=== PATIENT | female | born 1970 | race Caucasian/White ===

== ENCOUNTER 2019-02-14 04:50 | Emergency (ER) | payer OTHER ==
[~2019-02-14] VITALS: Ht 167.6 cm; Wt 95.2 kg
--- OUTSIDE RECORDS SUMMARY | ~2019-02-14 | XMS | Clinical Summary ---
Demographics + + + | Address | [address] | | | [place] [address] | + + + | Home Phone | | + + + | Preferred Language | Unknown | + + + | Marital Status | | + + + | Church Affiliation | Unknown | + + + | Race | Unknown | + + + | Ethnic Group | Unknown | + + + Author + + + | Author | [employer] | + + + | Organization | [facility] | + + + | Address | Unknown | + + + | Phone | Unavailable | + + + Support + + +---------+ + | Name | Relationship | Address | Phone | + + +---------+ + | Azul Larios | ECON | Unknown | | + + +---------+ + | Nallely Post | ECON | Unknown | | + + +---------+ + | Luke Hawthorne | ECON | Unknown | | + + +---------+ + Care Team Providers + +------+ + | Care Kilnman Name | Role | Phone | + +------+ + | Norman Salcedo MD | PP | | + +------+ + Allergies + + + + + + | Active Allergy | Reactions | Severity | Noted | Comments | | | | | Date | | + + + + + + | Hydrocodone-Acetamin | Hives | High | 08/14/20 | | | ophen | | | 16 | | + + + + + + Current Medications + + +-------+---------+------+------+-------+ | Prescription | Sig. | Disp. | Refills | Star | End | Statu | | | | | | t | Date | s | | | | | | Date | | | + + +-------+---------+------+------+-------+ | | Take 1 tablet by | | | | | Activ | | lisinopril-hydrochlo | mouth daily. | | | | | e | | rothiazide | | | | | | | | (PRINZIDE,ZESTORETIC | | | | | | | | ) 20-25 MG per | | | | | | | | tablet | | | | | | | + + +-------+---------+------+------+-------+ | aspirin 81 MG EC | Take 81 mg by mouth | | | | | Activ | | tablet | daily with | | | | | e | | | breakfast. | | | | | | + + +-------+---------+------+------+-------+ | MULTIPLE VITAMIN | Take by mouth | | | | | Activ | | PO | daily. | | | | | e | + + +-------+---------+------+------+-------+ Active Problems Not on file Family History + + +------+ + | Medical History | Relation | Name | Comments | + + +------+ + | Heart disease | Father | | | + + +------+ + | High cholesterol | Father | | | + + +------+ + | Hypertension | Father | | | + + +------+ + | Stroke | Father | | | + + +------+ + | Cancer | Mother | | | + + +------+ + | Heart disease | Sister | | | + + +------+ + + +------+ + + | Relation | Name | Status | Comments | + +------+ + + | Brother | | Alive | | + +------+ + + | Father | | | open heart x 2, valve | | | | (Age | replacement,HTN,Hyperlipidemia,CVA | | | | 72) | | + +------+ + + | Mother | | | liver cancer | | | | (Age | | | | | 56) | | + +------+ + + | Sister | | Alive | | + +------+ + + | Sister | | Alive | | + +------+ + + Social History + +-------+ +--------+------+ | Tobacco Use | Types | Packs/Day | Years | Date | | | | | Used | | + +-------+ +--------+------+ | Never Smoker | | | | | + +-------+ +--------+------+ + +---+---+---+ | Smokeless Tobacco: | | | | | Never Used | | | | + +---+---+---+ + + +---------+ + | Alcohol Use | Drinks/We | oz/Week | Comments | | | ek | | | + + +---------+ + | Yes | 0 | 0.0 | 1-2 weekly | | | Standard | | | | | drinks or | | | | | | | | | | equivalen | | | | | t | | | + + +---------+ + + + + | Sex Assigned at | Date Recorded | | | | + + + | Not on file | | + + + Last Filed Vital Signs + + + + | Vital Sign | Reading | Time Taken | + + + + | Blood Pressure | 126/66 | 08/14/2016 9:52 AM PDT | + + + + | Pulse | 90 | 08/14/2016 9:52 AM PDT | + + + + | Temperature | - | - | + + + + | Respiratory Rate | 16 | 08/14/2016 9:52 AM PDT | + + + + | Oxygen Saturation | 98% | 08/14/2016 9:52 AM PDT | + + + + | Inhaled Oxygen | - | - | | Concentration | | | + + + + | Weight | 95.8 kg (211 lb 3.2 | 08/14/2016 9:52 AM PDT | | | oz) | | + + + + | Height | 168.9 cm (5' 6.5") | 08/14/2016 9:52 AM PDT | + + + + | Body Mass Index | 33.58 | 08/14/2016 9:52 AM PDT | + + + + Plan of Treatment + + + + + | Health Maintenance | Due Date | Last Done | Comments | + + + + + | Vaccine: | | | | | Dtap/Tdap/Td (1 - | 8 | | | | Tdap) | | | | + + + + + | Cervical Cancer | | | | | Screening (Pap) | 9 | | | + + + + + | Breast Cancer | | | | | Screening | 9 | | | | (Mammogram) | | | | + + + + + | Colon Cancer | | | | | Screening | 9 | | | | (Colonoscopy) | | | | + + + + + | Vaccine: Zoster (1 | | | | | of 2) | 9 | | | + + + + + | Vaccine: Influenza | | | | | (Season Ended) | 9 | | | + + + + + Results Not on filefrom Last 3 Months Insurance + +--------+ +------+-------+---------+ | Payer | Benefi | Subscriber | Type | Phone | Address | | | t Plan | ID | | | | | | / | | | | | | | Group | | | | | + +--------+ +------+-------+---------+ | [employer] | [employer] | [id number] | | | | | | WORK | | | | | + +--------+ +------+-------+---------+ + +--------+ +--------+ + + | Guarantor Name | Accoun | Relation to | Date | Phone | Billing Address | | | t Type | Patient | of | | | | | | | | | | + +--------+ +--------+ + + | ANGE OSPINA | Person | Self [birth year] Work: | [address] | | | al/[place] | | 1971 | [phone] | [place] [address] | | | [place] | | | [phone]: | | | | | | | | | | | | | | [phone] | | | | | | | 2020 | | + +--------+ +--------+ + +
--- OUTSIDE RECORDS SUMMARY | ~2019-02-14 | XMS | Clinical Summary ---
Demographics + + + | Address | [address] | | | [place] [address] | + + + | Home Phone | | + + + | Preferred Language | Unknown | + + + | Marital Status | | + + + | Episcopalian Affiliation | Unknown | + + + | Race | Unknown | + + + | Ethnic Group | Unknown | + + + Author + + + | Author | [facility] [employer] | + + + | Organization | [facility] | + + + | [...] Team Providers + +------+ + | Care Excelsior Machine Operator Name | Role | Phone | + [...] +------+-------+---------+ | [employer] | [employer] | [id number] | | | | | | WORK [...] | | al/[address] | | 1971 | [phone] | [place] [address] | | | [place]ina | | | [phone]: | | | | | | | | | | | | | | [phone] | | | | | | | [phone] | | + +--------+ +--------+ + +
[~2019-02-14 04:50] MED LIST: EPIPEN 2-P0.3 MG/0.3 IM; IBUPROFEN600 MG PO
[2019-02-14] MEDS ORDERED: LISINOPRIL-HCT1 EAC1 PO (04:59)
--- NOTE | 2019-02-14 18:45 | EKG ---
[facility] [address] [facility] [place] [address] Signed Normal sinus rhythm Incomplete right bundle branch block Prolonged QT Abnormal ECG No previous ECGs available Confirmed by DORON SEPULVEDA DO ([id number]) on 02/14/2019 6:45:27 PM Electronically Signed By: DORON SEPULVEDA DO 02/14/19 1845 PATIENT NAME: ANGE OSPINA Electrocardiogram DATE OF : 66 PHYSICIAN: DORON SEPULVEDA DO REPORT #: [id number] REPORT IS CONFIDENTIAL AND NOT TO BE RELEASED WITHOUT AUTHORIZATION
== END 2019-02-14 06:37 | disposition home or self-care (01) ==
LOC: ED 04:50
DX: R07.89 Other chest pain (principal); I10 Essential (primary) hypertension; Z90.49 Acquired absence of other specified parts of digestive tract; Z90.710 Acquired absence of both cervix and uterus; Z88.5 Allergy status to narcotic agent; Z91.018 Allergy to other foods
CPT/HCPCS: 71045; 80053; 82550; 82553; 83874; 84484; 85025; 85379; 93005; 93010; 99285-25

== ENCOUNTER 2019-07-25 18:35 | Emergency (ER) | payer OTHER ==
[~2019-07-25] VITALS: Ht 167.6 cm; Wt 99.8 kg
--- OUTSIDE RECORDS SUMMARY | ~2019-07-25 | XMS | Clinical Summary ---
Demographics + + + | Address | [address] | | | [place] [address] | + + + | Home Phone | | + + + | Preferred Language | Unknown | + + + | Marital Status | | + + + | Zoroastrianism Affiliation | Unknown | + + + | Race | Unknown | + + + | Ethnic Group | Unknown | + + + Author + + + | Author | [facility] (Historical as of | | | 05-30-19) | + + + | Organization | [facility] (Historical as of | | | 05-30-19) | + + + | Address | [...] Team Providers + +------+ + | Care Pharmacy Technician Program Director Name | Role | Phone | + [...] Vaccine: Influenza | | | | | (#1) | 9 | | | + + [...] +------+-------+---------+ | [employer] | [employer] | [id number] | | | | | | WORK [...] | [address] | | | al/Fam | | 1971 | [phone] | [place] [address] | | | [place]ina | | | [phone] Home: | | | | | | | | | | | | | | [phone] | | | | | | | [phone] | | + +--------+ +--------+ + +
--- OUTSIDE RECORDS SUMMARY | ~2019-07-25 | XMS | Clinical Summary ---
Demographics + + + | Address | [address] | | | [place] [address] | + + + | Home Phone | | + + + | Preferred Language | Unknown | + + + | Marital Status | | + + + | Buddhist Affiliation | Unknown | + + + | Race | Unknown | + + + | Ethnic Group | Unknown | + + + Author + + + | Author | [facility] (Historical as of | | | 05-30-19) | + + + | Organization | [facility] (Historical as of | | | 05-30-19) [...] Team Providers + +------+ + | Care Painter Spray Name | Role | Phone | + [...] +------+-------+---------+ | [employer] | [employer] | [id number] | | | | | | WORK [...] 1971 | [phone] | [place] [address] | | | [place] | | | [phone]: | | | | | | | | | | | | | | [phone] | | | | | | | [phone] | | + +--------+ +--------+ + +
[~2019-07-25 18:35] MED LIST changes: +LISINOPRIL-HCT1 EAC1 PO
== END 2019-07-25 20:54 | disposition home or self-care (01) ==
LOC: ED 18:35
DX: S83.92XA Sprain of unspecified site of left knee, initial encounter (principal); I10 Essential (primary) hypertension; Z88.5 Allergy status to narcotic agent; Z91.018 Allergy to other foods; Z79.899 Other long term (current) drug therapy; X50.1XXA Overexertion from prolonged static or awkward postures, initial encounter
CPT/HCPCS: 73560; 99283-25

== ENCOUNTER 2022-01-17 07:28 | Emergency (ER) | payer OTHER ==
[~2022-01-17] VITALS: Ht 167.6 cm; Wt 79.7 kg
--- NOTE | 2022-01-18 17:27 | EKG ---
[facility] [address] [facility] [place] [address] Signed Sinus bradycardia Incomplete right bundle branch block Borderline ECG When compared with ECG of 14-FEB-2019 04:56, Vent. rate has decreased BY 47 BPM QT has shortened Confirmed by GIANFRANCO ESPINOSA MD ([id number]) on 01/18/2022 5:27:05 PM Electronically Signed By: GIANFRANCO ESPINOSA MD 01/18/22 1727 PATIENT NAME: ANGE OSPINA Electrocardiogram DATE OF : 66 PHYSICIAN: GIANFRANCO ESPINOSA MD REPORT #: [id number] REPORT IS CONFIDENTIAL AND NOT TO BE RELEASED WITHOUT AUTHORIZATION
== END 2022-01-17 09:55 | disposition home or self-care (01) ==
LOC: ED 07:28
DX: R55 Syncope and collapse (principal); R00.1 Bradycardia, unspecified; I10 Essential (primary) hypertension; Z91.018 Allergy to other foods; Z88.5 Allergy status to narcotic agent; Z79.899 Other long term (current) drug therapy
CPT/HCPCS: 36415; 80053; 81001; 85025; 93005; 93010; 99284-25

== ENCOUNTER 2022-12-15 10:52 | Emergency (ER) | payer OTHER ==
[~2022-12-15] VITALS: Ht 167.6 cm; Wt 79.7 kg
== END 2022-12-15 11:55 | disposition home or self-care (01) ==
LOC: ED 10:52
DX: H57.89 Other specified disorders of eye and adnexa (principal); I10 Essential (primary) hypertension; Z88.5 Allergy status to narcotic agent; Z91.018 Allergy to other foods; Z79.899 Other long term (current) drug therapy
CPT/HCPCS: 99283

== ENCOUNTER 2025-10-06 04:03 | Emergency (ER) | payer OTHER ==
[~2025-10-06] VITALS: Ht 167.6 cm; Wt 87.7 kg
[~2025-10-06 04:03] MED LIST changes: +LISINOPRIL10 MG PO
[2025-10-06 04:10] VITALS: BP 157/87
[2025-10-06] MEDS ORDERED: diazePAM 10 MG/2 ML SYR IM ONE (05:00)
[2025-10-06] MEDS ORDERED: KETOROLAC TROMETHAMINE 60 MG/2 ML VIAL IM ONE (05:00)
[2025-10-06] MEDS ORDERED: OXYCODONE/ACETAMINOPHEN 1 TAB HOME.PACK PO ONE (05:45)
[2025-10-06] MEDS ORDERED: CYCLOBENZAPRINE HCL 10 MG HOME.PACK PO ONE (05:45)
[2025-10-06] MEDS ORDERED: methylPREDNISolone 4 MG HOME.PACK PO ONE (05:45)
[2025-10-06] MEDS ORDERED: CYCLOBENZAPRINE10 MG PO (05:46)
== END 2025-10-06 06:35 | disposition home or self-care (01) ==
LOC: ED 04:03
DX: S39.012A Strain of muscle, fascia and tendon of lower back, initial encounter (principal); I10 Essential (primary) hypertension; X50.0XXA Overexertion from strenuous movement or load, initial encounter; Z91.018 Allergy to other foods; Z88.5 Allergy status to narcotic agent
CPT/HCPCS: 72100; 96372; 99283; J1885